=== PATIENT | male | born 1980 | race Caucasian/White ===

== ENCOUNTER 2018-04-19 15:00 | Outpatient (CLI) | payer BC | END 2018-04-19 15:01 | disposition home or self-care (01) | LOC: SLEEPLAB 15:00 | PROVIDERS: ATTEND Internal Medicine | DX: G47.33 Obstructive sleep apnea (adult) (pediatric) (principal); I10 Essential (primary) hypertension; R51 Headache; R53.83 Other fatigue; R06.83 Snoring; E66.9 Obesity, unspecified; Z68.41 Body mass index [BMI] 40.0-44.9, adult | CPT/HCPCS: 95806 ==